=== PATIENT | male | born 1955 | race Caucasian/White ===

== ENCOUNTER 2023-03-22 08:45 | Outpatient (CLI) | payer OTHER, SELFPAY | END 2023-03-22 08:46 | disposition home or self-care (01) | PROVIDERS: PCP Family Medicine; Visit Provider Family Medicine | DX: E78.5 Hyperlipidemia, unspecified (principal); I10 Essential (primary) hypertension | CPT/HCPCS: 80053; 80061 ==

== ENCOUNTER 2023-03-30 07:10 | Outpatient (CLI) | payer OTHER, SELFPAY ==
--- OUTSIDE RECORDS SUMMARY | 2023-03-30 07:13 | XMS_ITS | Clinical Summary ---
Author Name Unknown Organization [facility] Address [place], [place] [address] Care Team Providers Care Chimney Repairer Name Role Phone Pcp, No Primary Care Provider Unavailabl e Allergies No known active allergies Medications Medication Sig Dispensed Refills Start Date End Date Status cetirizine (ZYRTEC) 10 mg tablet Take 1 tablet by mouth once daily. 0 09/03/2015 Active sildenafil citrate (VIAGRA) 100 mg tabletIndications:H ypoactive sexual desire disorder Take 30min to 4 hours before sexual activity. Max 100mg/24hr.TAKE 1 TABLET ONCE DAILY IF NEEDED FOR ERECTILE DYSFUNCTION 30 MINUTES TO4 HOURS BEFORE SEXUAL ACTIVITY. MAX 100MG / 24HR. 30 Tablet 5 03/28/2021 Active Active Problems Problem Noted Date Diagnosed Date Adenomatous colon polyp 01/31/2013 Overview: Colonoscopy 01/2013 polyp repeat in 5 years Colonoscopy 02/2018 polyp, repeat in 5 years Basal cell carcinoma of nose 04/19/2012 HTN (hypertension) 10/10/2011 Resolved Problems Problem Noted Date Diagnosed Date Resolved Date Muscle cramp 10/10/2011 10/12/2013 Loss of weight 10/10/2011 10/12/2013 Immunizations Name Administration Dates Next Due AMB Influenza, IIV4 PF (=>6 mos Flulaval,Fluzone Fluarix)(Flu Clinic Only) 11/26/2015,11/16/2014,12/06/2013 COVID-19 vaccine (Moderna 100mcg/0.5mL) PF, MDV 2021 Influenza Virus, Unspecified 11/27/2019 Influenza, IIV4 11/07/2020, 9,11/26/2015,2014,12/06/2013 Tdap 09/22/2012 Family History Medical History Relation Name Comments Cancer Brother ?throat cancer Cancer Father Brain tumor at age 41 Heart attack Mother Stroke Mother Good Health Sister Relation Name Status Comments Brother Alive Father Mother Alive Sister Alive Social History Tobacco Use Types Packs/Day Years Used Date Smoking Tobacco: Never Passive Smoke Exposure: Never Smokeless Tobacco: Never Tobacco Cessation:Counseling Given: Not Answered Alcohol Use Standard Drinks/Week Comments Not Currently 0 (1 standard drink = 0.6 oz pur e alcohol) PHQ-2 Answer Date Recorded PHQ-2 TOTAL SCORE 0 04/04/2021 Social Connections Answer Date Recorded Frequency of Communication with Friends and Fami ly 0 08/31/2022 Financial Resource Strain Answer Date R ecorded Difficulty of Paying Living Expenses 3 08/31/2022 Difficulty of Paying Living Expenses Not on file 08/31/2022 Food Insecurity Answer Date Recorded Worried About Running Out of Food in the Last Ye ar 1 08/31/2022 Transportation Needs Answer Date Record ed Lack of Transportation (Medical) 1 08/31/2022 Housing Stability Answer Date Recorded Unable to Pay for Housing in the Last Year 1 08/31/2022 Sex and Gender Information Value Date Recorded Sex Assigned at Male 01/01/2020 2:47 PM MANAGER DELIVERY Gender Identity Not on file Sexual Orientation Straight 01/01/2020 2: 47 PM MANAGER DELIVERY Obstetrics History Last Filed Vital Signs Vital Sign Reading Time Taken Comments Blood Pressure 116/66 08/31/2022 2:08 PM CDT Pulse 74 08/31/2022 2:08 PM CDT Temperature 36.6 ??C (97.9 ??F) 08/07/2022 1:43 PM CD T Respiratory Rate 16 08/07/2022 1:43 PM CDT Oxygen Saturation 99% 08/07/2022 1:43 PM CDT Inhaled Oxygen Concentration - - Weight 81.2 kg (179 lb) 08/31/2022 2:08 PM CDT Height 173 cm (5' 8.11) 08/31/2022 2:08 PM CDT Body Mass Index 27.13 08/31/2022 2:08 PM CDT Plan of Treatment Health Maintenance Due Date Last Done Comments Zoster (shingles) series for age 50+ (1 of 2) 2007 Medicare Wellness for age 65+ 2022 Pneumococcal series for age 65+ (1 of 1 - PCV) 2022 Depression screening for age 12+ 04/04/2022 04/04/2021, 03/31/2021, 03/28/2021, Additional history exists Tetanus booster 09/22/2022 09/22/2012 COVID-19 vaccine series ( season) 2022 2021, 06/01/2020, 05/11/2020 Influenza for age 65+ 10/16/2022 11/07/2020 , 11/27/2019, 11/01/2018, Additional history exists Colonoscopy through age 75 03/07/202303/07, 03/07/2018, 03/07/2018, Additional history exists BMI (ht and wt on same day) for age 18+ 09/01/2023 08/31/2022, 08/07/2022, 04/04/2021, Additional history exists Lipids for age 45-75 04/04/2026 04/04/2021, 01/09/2020, 06/02/2018, Additional history exists Tdap Completed 09/22/2012 Hepatitis C screening for ag e 18-79 Completed 06/01/2017 Care Teams Chimney Repairer Relationship Specialty Start Date End Date Pcp, No . PCP - General 04/08/22
--- NOTE | 2023-03-30 08:41 | W.ANESCHARGE ---
Anesthesia Charges Start Date/Time Anesthesia Start Date: 03/30/23 Anesthesia Start Time: 08:02 Stop Date/Time Anesthesia Stop Date: 03/30/23 Anesthesia Stop Time: 08:39
--- NOTE | 2023-03-30 10:10 | W.ANESCHARGE ---
Anesthesia Charges Start Date/Time Anesthesia Start Date: 03/30/23 Anesthesia Start Time: 08:02 Stop Date/Time Anesthesia Stop Date: 03/30/23 Anesthesia Stop Time: 08:39
== END 2023-03-30 07:11 | disposition home or self-care (01) ==
LOC: OP CLINIC 07:11
PROVIDERS: PCP Family Medicine; Visit Provider Surgery
DX: Z12.11 Encounter for screening for malignant neoplasm of colon (principal); K63.5 Polyp of colon; Z86.010 Personal history of colon polyps
CPT/HCPCS: 00811; 45381; 45385; 88305; J2704

== ENCOUNTER 2024-04-06 06:56 | Outpatient (CLI) | payer OTHER, SELFPAY ==
--- NOTE | 2024-04-06 08:36 | P.ANES_ITS ---
Anesthesia Charges Start Date/Time Anesthesia Start Date: 04/06/24 Anesthesia Start Time: 08:02 Stop Date/Time Anesthesia Stop Date: 04/06/24 Anesthesia Stop Time: 08:34 Summary Extremes of Age - Over 70 or under 1: MDA Coding CPT Codes CPT Codes: HERBIE LWR INTST NDSC NOS - 41280 ([id number]) P1 - NORMAL HEALTHY PATIENT, QK - STAMP MACHINE SERVICER 2-4 CNCRNT ANEElsy PROC, QX - ROUTE DELIVERY MANAGER SVC W/ MD MED DIRECTION Additional Codes: Summary - Extremes of Age - Over 70 or under 1: MDA ([id number])
--- NOTE | 2024-04-06 08:36 | W.ANESCHARGE ---
Anesthesia Charges Start Date/Time Anesthesia Start Date: 04/06/24 Anesthesia Start Time: 08:02 Stop Date/Time Anesthesia Stop Date: 04/06/24 Anesthesia Stop Time: 08:34 Summary Extremes of Age - Over 70 or under 1: MDA Coding CPT Codes CPT Codes: HERBIE LWR INTST NDSC NOS - [id number] ([id number]) P1 - NORMAL HEALTHY PATIENT, QK - DIRECTOR OF RECRUITMENT AND ADMISSIONS 2-4 CNCRNT ANEElsy PROC, QX - LITHOGRAPHIC RETOUCHER APPRENTICE SVC W/ MD MED DIRECTION Additional Codes: Summary - Extremes of Age - Over 70 or under 1: MDA ([id number])
--- NOTE | 2024-04-06 09:08 | P.ANES_ITS ---
Anesthesia Charges Start Date/Time Anesthesia Start Date: 04/06/24 Anesthesia Start Time: 08:02 Stop Date/Time Anesthesia Stop Date: 04/06/24 Anesthesia Stop Time: 08:34 Coding CPT Codes CPT Codes: HERBIE LWR INTST NDSC NOS - [id number] ([id number]) P1 - NORMAL HEALTHY PATIENT, QK - UPKEEP WORKER 2-4 CNCRNT ANES PROC, QX - RADIATION MONITOR SVC W/ MED DIRECTION
--- NOTE | 2024-04-06 09:08 | W.ANESCHARGE ---
Anesthesia Charges Start Date/Time Anesthesia Start Date: 04/06/24 Anesthesia Start Time: 08:02 Stop Date/Time Anesthesia Stop Date: 04/06/24 Anesthesia Stop Time: 08:34 Coding CPT Codes CPT Codes: HERBIE LWR INTST NDSC NOS - 31688 ([id number]) P1 - NORMAL HEALTHY PATIENT, QK - MARKETING ADMINISTRATOR 2-4 CNCRNT ANES PROC, QX - TRANSPORT RN SVC W/ MED DIRECTION
== END 2024-04-06 06:57 | disposition home or self-care (01) ==
PROVIDERS: PCP Family Medicine; Visit Provider Surgery
DX: Z12.11 Encounter for screening for malignant neoplasm of colon (principal); D12.2 Benign neoplasm of ascending colon; Z86.0101 Personal history of adenomatous and serrated colon polyps; Z09 Encounter for follow-up examination after completed treatment for conditions other than malignant neoplasm
CPT/HCPCS: 00811; 45385; 88305; 99100; J2704